=== PATIENT | female | born 1990 | race Caucasian/White ===

== ENCOUNTER 2020-01-03 13:06 | Inpatient (IN) | payer OTHER ==
[~2020-01-03] VITALS: Ht 167.6 cm; Wt 82.3 kg
[2020-01-03 14:04] LABS: BASOPHILS # (AUTO) 0.14 x10^3/uL (0-0.1); BASOPHILS % (AUTO) 1 % (0-1); EOSINOPHILS # (AUTO) 0.14 x10^3/uL (0-0.4); EOSINOPHILS % (AUTO) 1 % (1-7); LYMPHOCYTES # (AUTO) 2.97 x10^3/uL (1-3.4); LYMPHOCYTES % (AUTO) 24 % (22-44); MD NO; MEAN CORPUSCULAR HEMOGLOBIN 30.9 pg (27.0-34.8); MEAN PLATELET VOLUME 11.1 fL (7.4-10.4); MONOCYTES # (AUTO) 0.82 x10^3/uL (0.2-0.8); MONOCYTES % (AUTO) 7 % (2-9); NEUTROPHILS % (AUTO) 67 % (42-75); PLATELET COUNT 191 x10^3/uL (130-400); RED BLOOD COUNT 4.51 x10^6/uL (3.82-5.3); RED CELL DISTRIBUTION WIDTH 13.4 % (9.6-15.2)
[2020-01-03 14:14] LABS: ALANINE AMINOTRANSFERASE 21 U/L (12-78); ALBUMIN 2.6 g/dL (3.4-5.0); ANION GAP 12 mmol/L (5-15); CALCIUM 9.2 mg/dL (8.5-10.1); CHLORIDE 110 mmol/L (98-107); CREATININE 0.69 mg/dL (0.55-1.02)
[2020-01-03 14:16] LABS: CREATININE,URINE RANDOM 34.9 mg/dL
[2020-01-03 14:17] LABS: ALKALINE PHOSPHATASE 145 U/L (45-117); BILIRUBIN,TOTAL 0.4 mg/dL (0.2-1.0); TOTAL PROTEIN 6.8 g/dL (6.4-8.2)
[2020-01-03 14:46] LABS: MICROSCOPIC INDICATED
[2020-01-03] MEDS ORDERED: ACETAMINOPHEN 325 MG TABLET PO PRN (15:00)
[2020-01-03] MEDS ORDERED: BETAMETHASONE 6 MG/ML, 5ML IM ONE ×2 (15:00→15:09)
[2020-01-03] MEDS ORDERED: ACETAMINOPHEN 325 MG TABLET ONE (15:09)
[2020-01-03] MEDS ORDERED: PLEASE ENTER ALLERGIES MC SCH (15:30)
[2020-01-03] MEDS ORDERED: PLEASE ENTER HEIGHT AND WEIGHT MC SCH (15:30)
[2020-01-03 15:55] VITALS: BP 124/62
[2020-01-04 06:56] LABS: ALANINE AMINOTRANSFERASE 18 U/L (12-78); ALBUMIN 2.4 g/dL (3.4-5.0); ANION GAP 9 mmol/L (5-15); CALCIUM 9.2 mg/dL (8.5-10.1); CHLORIDE 110 mmol/L (98-107); CREATININE 0.68 mg/dL (0.55-1.02)
[2020-01-04 07:02] LABS: ALKALINE PHOSPHATASE 135 U/L (45-117); BILIRUBIN,TOTAL 0.5 mg/dL (0.2-1.0); TOTAL PROTEIN 6.3 g/dL (6.4-8.2)
[2020-01-04 07:09] LABS: MEAN CORPUSCULAR HEMOGLOBIN 30.8 pg (27.0-34.8); MEAN CORPUSCULAR HGB CONC 33.6 g/dL (32.4-35.8); MEAN PLATELET VOLUME 11.3 fL (7.4-10.4); PLATELET COUNT 172 x10^3/uL (130-400); RED BLOOD COUNT 4.43 x10^6/uL (3.82-5.3); RED CELL DISTRIBUTION WIDTH 13.2 % (9.6-15.2)
[2020-01-04 07:30] VITALS: BP 131/73
[2020-01-04 07:51] LABS: BASOPHILS # (AUTO) 0.05 x10^3/uL (0-0.1); BASOPHILS % (AUTO) 0 % (0-1); EOSINOPHILS % (AUTO) 0 % (1-7); LYMPHOCYTES # (AUTO) 2.48 x10^3/uL (1-3.4); LYMPHOCYTES % (AUTO) 14 % (22-44); MD SCAN; MONOCYTES # (AUTO) 0.57 x10^3/uL (0.2-0.8); MONOCYTES % (AUTO) 3 % (2-9); NEUTROPHILS # (AUTO) 14.61 x10^3/uL (1.8-6.8); NEUTROPHILS % (AUTO) 83 % (42-75)
[2020-01-04] MEDS ORDERED: BETAMETHASONE 6 MG/ML, 5ML IM ONE (15:00)
[2020-01-04] MEDS ORDERED: PREN1TAB60 PO (17:53)
== END 2020-01-04 18:30 | disposition home or self-care (01) | DRG 832 ==
LOC: LDOP 13:06 → LDIP 14:45
PROVIDERS: ADMIT Obstetrics & Gynecology; ATTEND Obstetrics & Gynecology
DX: O14.03 Mild to moderate pre-eclampsia, third trimester (principal); O41.03X0 Oligohydramnios, third trimester, not applicable or unspecified; O32.1XX0 Maternal care for breech presentation, not applicable or unspecified; Z3A.31 31 weeks gestation of pregnancy; Z80.41 Family history of malignant neoplasm of ovary; Z82.49 Family history of ischemic heart disease and other diseases of the circulatory system; Z83.3 Family history of diabetes mellitus; Z88.0 Allergy status to penicillin
CPT/HCPCS: 36415; 80053; 81001; 82570; 84156; 84550; 85025; 87081; 87086; G0378; J0702

== ENCOUNTER 2020-01-09 06:44 | Inpatient (IN) | payer OTHER ==
[~2020-01-09] VITALS: Ht 162.6 cm; Wt 82.2 kg
[~2020-01-09 06:44] MED LIST: PREN1TAB60 PO
[2020-01-09 07:40] VITALS: BP 171/90
[2020-01-09 08:01] LABS: MICROSCOPIC INDICATED
[2020-01-09 08:07] LABS: BASOPHILS # (AUTO) 0.06 x10^3/uL (0-0.1); BASOPHILS % (AUTO) 0 % (0-1); EOSINOPHILS # (AUTO) 0.14 x10^3/uL (0-0.4); EOSINOPHILS % (AUTO) 1 % (1-7); LYMPHOCYTES # (AUTO) 3.86 x10^3/uL (1-3.4); LYMPHOCYTES % (AUTO) 24 % (22-44); MD NO; MEAN CORPUSCULAR HEMOGLOBIN 30.2 pg (27.0-34.8); MEAN CORPUSCULAR HGB CONC 32.6 g/dL (32.4-35.8); MEAN CORPUSCULAR VOLUME 92.5 fL (80-100); MEAN PLATELET VOLUME 10.7 fL (7.4-10.4); MONOCYTES % (AUTO) 9 % (2-9); NEUTROPHILS # (AUTO) 10.87 x10^3/uL (1.8-6.8); NEUTROPHILS % (AUTO) 67 % (42-75); PLATELET COUNT 156 x10^3/uL (130-400); RED BLOOD COUNT 4.72 x10^6/uL (3.82-5.3); RED CELL DISTRIBUTION WIDTH 13.4 % (9.6-15.2)
[2020-01-09 08:20] LABS: ALANINE AMINOTRANSFERASE 63 U/L (12-78); ALBUMIN 2.1 g/dL (3.4-5.0); ANION GAP 7 mmol/L (5-15); BILIRUBIN, DIRECT 0.1 mg/dL (0.1-0.2); CALCIUM 8.9 mg/dL (8.5-10.1); CHLORIDE 111 mmol/L (98-107); CREATININE 0.77 mg/dL (0.55-1.02)
[2020-01-09 08:22] LABS: ALKALINE PHOSPHATASE 166 U/L (45-117); BILIRUBIN,TOTAL 0.5 mg/dL (0.2-1.0); TOTAL PROTEIN 5.7 g/dL (6.4-8.2)
[2020-01-09] MEDS ORDERED: hydrALAzine 20 MG/ML, 1ML ONE (09:01)
[2020-01-09] MEDS ORDERED: BETAMETHASONE 6 MG/ML, 5ML IM ONE (09:02)
[2020-01-09] MEDS ORDERED: LABETALOL 200 MG TABLET ONE (09:12)
[2020-01-09] MEDS: LABETALOL 200 MG TABLET PO SCH (09:12)
[2020-01-09] MEDS ORDERED: hydrALAzine 20 MG/ML, 1ML IVPush ONE ×6 (09:30→17:30)
[2020-01-09] MEDS ORDERED: LABETALOL 5MG/ML 40ML VIAL IVPush ONE (09:30)
[2020-01-09] MEDS: LACTATED RINGERS 1,000 ML IV PRN ×2 (09:34→16:28)
[2020-01-09] MEDS ORDERED: ACETAMINOPHEN 325 MG TABLET PO PRN ×5 (11:00→21:30)
[2020-01-09] MEDS ORDERED: OXYTOCIN 30U/ 0.9% NaCL 500ML 500 ML IV SCH (11:37)
[2020-01-09] MEDS ORDERED: SIMETHICONE 80 MG CHEW TAB PO PRN (12:00)
[2020-01-09] MEDS ORDERED: IBUPROFEN 600 MG TABLET PO PRN (12:00)
[2020-01-09] MEDS ORDERED: DIPH,PERTUSS(ACELL),TET VAC/PF NC IM-VACC PRN ×2 (12:00→21:30)
[2020-01-09] MEDS ORDERED: CARBOPROST TROMETHAMINE 250 MCG/ML, 1ML IM PRN ×2 (12:00→21:30)
[2020-01-09] MEDS ORDERED: DOCUSATE 100 MG CAPSULE PO PRN ×2 (12:00→21:30)
[2020-01-09] MEDS ORDERED: METHYLERGONOVINE 0.2 MG/ML IM PRN (12:00)
[2020-01-09] MEDS ORDERED: OXYcodone/APAP 5/325MG TABLET PO PRN ×2 (12:00)
[2020-01-09] MEDS ORDERED: MISOPROSTOL 200 MCG TABLET PR PRN ×2 (12:00→21:30)
[2020-01-09] MEDS ORDERED: NEWBORN KIT ONE (16:12)
[2020-01-09] MEDS ORDERED: METOCLOPRAMIDE 5 MG/ML, 2ML ONE (19:36)
[2020-01-09] MEDS ORDERED: SODIUM CITRATE/CITRIC ACID 30 ML UDC ONE (19:36)
[2020-01-09] MEDS ORDERED: LACTATED RINGERS 1,000 ML IV SCH (19:37)
[2020-01-09] MEDS ORDERED: OXYTOCIN 30U/ 0.9% NaCL 500ML 500 ML ONE (19:39)
[2020-01-09] MEDS ORDERED: FENTANYL PF 100 MCG/2ML ONE (19:46)
[2020-01-09] MEDS ORDERED: CEFAZOLIN 1,000 MG ONE ×2 (19:53)
[2020-01-09] MEDS ORDERED: OXYTOCIN 10 UNITS/ML, 1ML ONE ×4 (19:53)
[2020-01-09] MEDS ORDERED: KETOROLAC 30 MG/1 ML ONE (19:53)
[2020-01-09] MEDS ORDERED: AZITHROMYCIN 500 MG in SODIUM CHLORIDE 0.9% 250 ML IV ONE (20:00)
[2020-01-09] MEDS ORDERED: METOCLOPRAMIDE 5 MG/ML, 2ML IV ONE (20:00)
[2020-01-09] MEDS ORDERED: SODIUM CITRATE/CITRIC ACID 30 ML UDC PO ONE (20:00)
[2020-01-09] MEDS ORDERED: LACTATED RINGERS 1,000 ML IVBOLUS ONE (20:00)
[2020-01-09] MEDS ORDERED: OXYTOCIN 30U/ 0.9% NaCL 500ML ONE (20:10)
[2020-01-09] MEDS ORDERED: ONDANSETRON 2MG/ML, 2ML ONE (20:50)
[2020-01-09] MEDS ORDERED: DOCUSATE 100 MG CAPSULE PO SCH (21:00)
[2020-01-09] MEDS: LACTATED RINGERS 1,000 ML IV SCH ×2 (21:15→22:40)
[2020-01-09] MEDS ORDERED: MAGNESIUM SULF. PMX 20GM/500ML 500 ML IV ONE (21:20)
[2020-01-09] MEDS ORDERED: MAGNESIUM SULFATE PMX 4GM/100M 100 ML ONE (21:20)
[2020-01-09] MEDS ORDERED: hydrALAzine 20 MG/ML, 1ML IV PRN (21:30)
[2020-01-09] MEDS ORDERED: METOCLOPRAMIDE 5 MG/ML, 2ML IVPush PRN (21:30)
[2020-01-09] MEDS ORDERED: ONDANSETRON 2MG/ML, 2ML IV PRN (21:30)
[2020-01-09] MEDS ORDERED: FENTANYL PF 100 MCG/2ML IV PRN (21:30)
[2020-01-09] MEDS ORDERED: ONDANSETRON 2MG/ML, 2ML IVPush PRN (21:30)
[2020-01-09] MEDS ORDERED: OXYcodone 5 MG/5 ML ORAL.SOL UDC PO PRN (21:30)
[2020-01-09] MEDS ORDERED: EPHEDRINE 50 MG/ML, 1ML IVPush PRN (21:30)
[2020-01-09] MEDS ORDERED: morphine SULFATE 10 MG/ML, 1ML IVPush PRN (21:30)
[2020-01-09] MEDS ORDERED: LABETALOL 5MG/ML, 20ML IV PRN (21:30)
[2020-01-09] MEDS ORDERED: DIPHENHYDRAMINE 50 MG/ML, 1ML IVPush PRN (21:30)
[2020-01-09] MEDS ORDERED: morphine SULFATE 10 MG/ML, 1ML IV PRN (21:30)
[2020-01-09] MEDS: MAGNESIUM SULF. PMX 20GM/500ML 500 ML IV SCH (21:39)
[2020-01-09] MEDS: KETOROLAC 30 MG/1 ML IV SCH (22:00)
[2020-01-09] MEDS ORDERED: MAGNESIUM SULFATE PMX 4GM/100M 100 ML IVPB ONE (22:00)
[2020-01-09] MEDS: OXYTOCIN 30U/ 0.9% NaCL 500ML 500 ML IV SCH (22:40)
[2020-01-09] MEDS ORDERED: OXYcodone/APAP 5/325MG TABLET ONE (22:54)
[2020-01-09] MEDS: OXYcodone/APAP 5/325MG TABLET PO PRN (22:56)
[2020-01-10] MEDS ORDERED: OXYcodone/APAP 5/325MG TABLET ONE ×2 (00:40→16:16)
[2020-01-10] MEDS: OXYcodone/APAP 5/325MG TABLET PO PRN ×4 (00:41→22:25)
[2020-01-10] MEDS ORDERED: MORPHINE SULFATE 4 MG/ML, 1ML IVPush PRN (04:30)
[2020-01-10] MEDS: LACTATED RINGERS 1,000 ML IV SCH ×5 (05:15→21:15)
[2020-01-10] MEDS ORDERED: KETOROLAC 30 MG/1 ML ONE ×2 (05:36→16:15)
[2020-01-10] MEDS: KETOROLAC 30 MG/1 ML IV SCH ×4 (05:38→22:25)
[2020-01-10] MEDS ORDERED: MAGNESIUM SULF. PMX 20GM/500ML 500 ML IV ONE (06:04)
[2020-01-10] MEDS ORDERED: LABETALOL 200 MG TABLET ONE (06:04)
[2020-01-10] MEDS: LABETALOL 200 MG TABLET PO SCH (06:27)
[2020-01-10] MEDS: MAGNESIUM SULF. PMX 20GM/500ML 500 ML IV SCH (07:07)
[2020-01-10 07:12] VITALS: BP 146/93
[2020-01-10] MEDS: OXYTOCIN 30U/ 0.9% NaCL 500ML 500 ML IV SCH ×2 (07:15→17:15)
[2020-01-10] MEDS ORDERED: PRENATAL VIT/IRON/FA 1 EACH TABLET ONE (07:50)
[2020-01-10] MEDS ORDERED: DOCUSATE 100 MG CAPSULE ONE (07:50)
[2020-01-10 08:34] LABS: BASOPHILS # (AUTO) 0.09 x10^3/uL (0-0.1); BASOPHILS % (AUTO) 1 % (0-1); EOSINOPHILS # (AUTO) 0.05 x10^3/uL (0-0.4); EOSINOPHILS % (AUTO) 0 % (1-7); LYMPHOCYTES # (AUTO) 2.94 x10^3/uL (1-3.4); LYMPHOCYTES % (AUTO) 18 % (22-44); MD SCAN; MEAN CORPUSCULAR HEMOGLOBIN 30.4 pg (27.0-34.8); MEAN CORPUSCULAR HGB CONC 32.6 g/dL (32.4-35.8); MEAN CORPUSCULAR VOLUME 93.2 fL (80-100); MEAN PLATELET VOLUME 10.7 fL (7.4-10.4); MONOCYTES # (AUTO) 1.01 x10^3/uL (0.2-0.8); MONOCYTES % (AUTO) 6 % (2-9); NEUTROPHILS # (AUTO) 12.29 x10^3/uL (1.8-6.8); NEUTROPHILS % (AUTO) 75 % (42-75); PLATELET COUNT 124 x10^3/uL (130-400); RED CELL DISTRIBUTION WIDTH 13.6 % (9.6-15.2)
[2020-01-10 08:36] LABS: ALANINE AMINOTRANSFERASE 36 U/L (12-78); ALBUMIN 1.8 g/dL (3.4-5.0); ANION GAP 9 mmol/L (5-15); BILIRUBIN, DIRECT 0.1 mg/dL (0.1-0.2); CALCIUM 7.5 mg/dL (8.5-10.1); CHLORIDE 105 mmol/L (98-107); CREATININE 0.65 mg/dL (0.55-1.02)
[2020-01-10 08:38] LABS: ALKALINE PHOSPHATASE 138 U/L (45-117); BILIRUBIN,TOTAL 0.6 mg/dL (0.2-1.0); TOTAL PROTEIN 5.2 g/dL (6.4-8.2)
[2020-01-10] MEDS ORDERED: PRENATAL VIT/IRON/FA 1 EACH TABLET PO SCH (09:00)
[2020-01-10] MEDS: PRENATAL VIT/IRON/FA 1 EACH TABLET PO SCH ×2 (09:00)
[2020-01-10 11:00] VITALS: BP 132/84
[2020-01-10 14:12] VITALS: BP 130/82
[2020-01-10] MEDS: LACTATED RINGERS 1,000 ML IV PRN (16:27)
[2020-01-10 17:27] VITALS: BP 124/77
[2020-01-10 19:30] VITALS: BP 132/79
[2020-01-10] MEDS: DOCUSATE 100 MG CAPSULE PO PRN (20:33)
[2020-01-11 00:15] VITALS: BP 117/75
[2020-01-11] MEDS: LACTATED RINGERS 1,000 ML IV SCH ×6 (03:15→23:15)
[2020-01-11] MEDS: OXYTOCIN 30U/ 0.9% NaCL 500ML 500 ML IV SCH ×3 (03:15→23:15)
[2020-01-11] MEDS: KETOROLAC 30 MG/1 ML IV SCH ×3 (04:30→16:05)
[2020-01-11 04:37] VITALS: BP 136/84
[2020-01-11 06:35] VITALS: BP 133/83
[2020-01-11] MEDS: LABETALOL 200 MG TABLET PO SCH (06:36)
[2020-01-11 06:51] LABS: BASOPHILS # (AUTO) 0.04 x10^3/uL (0-0.1); BASOPHILS % (AUTO) 0 % (0-1); EOSINOPHILS # (AUTO) 0.13 x10^3/uL (0-0.4); EOSINOPHILS % (AUTO) 1 % (1-7); LYMPHOCYTES # (AUTO) 2.66 x10^3/uL (1-3.4); LYMPHOCYTES % (AUTO) 19 % (22-44); MD NO; MEAN CORPUSCULAR HEMOGLOBIN 30.2 pg (27.0-34.8); MEAN CORPUSCULAR HGB CONC 32.6 g/dL (32.4-35.8); MEAN CORPUSCULAR VOLUME 92.7 fL (80-100); MEAN PLATELET VOLUME 10.1 fL (7.4-10.4); MONOCYTES % (AUTO) 9 % (2-9); NEUTROPHILS # (AUTO) 9.65 x10^3/uL (1.8-6.8); NEUTROPHILS % (AUTO) 71 % (42-75); PLATELET COUNT 119 x10^3/uL (130-400); RED BLOOD COUNT 3.63 x10^6/uL (3.82-5.3); RED CELL DISTRIBUTION WIDTH 13.9 % (9.6-15.2)
[2020-01-11 07:01] LABS: ALANINE AMINOTRANSFERASE 26 U/L (12-78); ALBUMIN 1.6 g/dL (3.4-5.0); ANION GAP 6 mmol/L (5-15); BILIRUBIN, DIRECT 0.1 mg/dL (0.1-0.2); CHLORIDE 106 mmol/L (98-107); CREATININE 0.77 mg/dL (0.55-1.02)
[2020-01-11 07:03] LABS: ALKALINE PHOSPHATASE 113 U/L (45-117); BILIRUBIN,TOTAL 0.4 mg/dL (0.2-1.0); TOTAL PROTEIN 4.8 g/dL (6.4-8.2)
[2020-01-11 08:00] VITALS: BP 128/84
[2020-01-11] MEDS: DOCUSATE 100 MG CAPSULE PO PRN ×2 (09:53→22:35)
[2020-01-11] MEDS: PRENATAL VIT/IRON/FA 1 EACH TABLET PO SCH ×2 (09:53→21:49)
[2020-01-11] MEDS: OXYcodone/APAP 5/325MG TABLET PO PRN ×3 (09:53→22:36)
[2020-01-11 19:35] VITALS: BP 132/83
[2020-01-11] MEDS: SIMETHICONE 80 MG CHEW TAB PO PRN (22:35)
[2020-01-11] MEDS: IBUPROFEN 600 MG TABLET PO PRN (22:35)
[2020-01-12 04:29] VITALS: BP 131/84
[2020-01-12] MEDS: IBUPROFEN 600 MG TABLET PO PRN ×4 (04:32→23:54)
[2020-01-12] MEDS: OXYcodone/APAP 5/325MG TABLET PO PRN ×4 (04:32→23:54)
[2020-01-12] MEDS: LACTATED RINGERS 1,000 ML IV SCH ×2 (05:15→09:15)
[2020-01-12 06:42] VITALS: BP 143/88
[2020-01-12] MEDS: LABETALOL 200 MG TABLET PO SCH (06:44)
[2020-01-12 08:45] VITALS: BP 133/77
[2020-01-12] MEDS: PRENATAL VIT/IRON/FA 1 EACH TABLET PO SCH ×2 (09:00→11:28)
[2020-01-12] MEDS: OXYTOCIN 30U/ 0.9% NaCL 500ML 500 ML IV SCH (09:15)
[2020-01-12] MEDS: SIMETHICONE 80 MG CHEW TAB PO PRN ×2 (11:28→23:53)
[2020-01-12] MEDS: DOCUSATE 100 MG CAPSULE PO PRN ×2 (11:28→23:54)
[2020-01-12 13:00] VITALS: BP 129/87
[2020-01-12 19:30] VITALS: BP 133/84
[2020-01-13 01:20] VITALS: BP 131/70
[2020-01-13 06:16] VITALS: BP 142/87
[2020-01-13] MEDS: LABETALOL 200 MG TABLET PO SCH (06:19)
[2020-01-13 08:10] VITALS: BP 152/94
[2020-01-13] MEDS: PRENATAL VIT/IRON/FA 1 EACH TABLET PO SCH ×2 (09:00→09:19)
[2020-01-13] MEDS: IBUPROFEN 600 MG TABLET PO PRN (09:19)
[2020-01-13] MEDS: DOCUSATE 100 MG CAPSULE PO PRN (09:19)
[2020-01-13] MEDS: OXYcodone/APAP 5/325MG TABLET PO PRN ×2 (09:20→13:17)
[2020-01-13] MEDS ORDERED: oxycodone PO (12:27)
[2020-01-13] MEDS ORDERED: DOCU-131 PO (12:27)
[2020-01-13] MEDS ORDERED: IBUP-1222 PO (12:27)
[2020-01-13] MEDS ORDERED: ACET-2065 PO (12:28)
== END 2020-01-13 13:45 | disposition home or self-care (01) | DRG 786 ==
LOC: LDOP 06:44 → LDIP 09:09 → 2NE 22:34 → 2NW 01-10 18:08
PROVIDERS: ADMIT Obstetrics & Gynecology; ATTEND Obstetrics & Gynecology
PROC: 10D00Z1 Extraction of Products of Conception, Low, Open Approach (ICD-10-PCS; principal; 2020-01-09)
DX: O36.5930 Maternal care for other known or suspected poor fetal growth, third trimester, not applicable or unspecified (principal); O45.93 Premature separation of placenta, unspecified, third trimester; O60.14X0 Preterm labor third trimester with preterm delivery third trimester, not applicable or unspecified; Z37.0 Single live birth; O14.14 Severe pre-eclampsia complicating childbirth; O76 Abnormality in fetal heart rate and rhythm complicating labor and delivery; O32.1XX0 Maternal care for breech presentation, not applicable or unspecified; Z3A.32 32 weeks gestation of pregnancy; Z23 Encounter for immunization
CPT/HCPCS: 36415; 76805; 76819; 80053; 81001; 82248; 82570; 82803; 83735; 84156; 84550; 85025; 86592; 86850; 86900; 87086; 88307; G0378; J0456; J0690; J1885; J2405; J3010; J0360; J2270; J2590; J2765; J3475; J7050; J7120